=== PATIENT | female | born 1965 | race Caucasian/White ===

== ENCOUNTER 2016-07-28 21:38 | Emergency (ER) | payer OTHER ==
[~2016-07-28] VITALS: Ht 175.3 cm; Wt 85.5 kg
[~2016-07-28 21:38] MED LIST: AMO500 PO; AMOX500T; HYDR-3011 PO; IBUP-1542 PO; ULT50 PO
[2016-07-28 21:40] VITALS: Ht 175.3 cm; Wt 85.5 kg
[2016-07-28] MEDS ORDERED: KETOROLAC 30 MG INJ IM STA (23:19)
[2016-07-28] MEDS ORDERED: DIAZEPAM 5 MG/ML SYG IM ONE (23:30)
[2016-07-28] MEDS ORDERED: IBUP-1542 PO (23:43)
[2016-07-28] MEDS ORDERED: CYCL-319 PO (23:43)
--- NOTE | 2016-07-28 23:55 | ERD ---
ER Documentation Chief Complaint Date/Time DATE: 07/28/16 TIME: 23:53 Chief Complaint lower back pain today,hx sciatica HPI This is a 50-year-old female presenting to the emergency room complaining of acute on chronic lower back pain with sciatica for the past day. Patient rates the pain moderate in severity. She denies any saddle anesthesia, bladder or bowel incontinence. Denies any urinary symptoms. Denies any fever. Patient states that she has taken ibuprofen at 11:00 this morning without any relief ROS All systems reviewed and are negative except as per history of present illness. Medications Home Meds Active Scripts Cyclobenzaprine Hcl* (Cyclobenzaprine Hcl*) 10 Mg Tablet, 10 MG PO TID, #15 TAB Prov:BAMBI SCHMIDT PA-C 07/28/16 Ibuprofen* (Ibuprofen*) 600 Mg Tablet, 600 MG PO Q6H Y for PAIN, #30 TAB Prov:BAMBI SCHMIDT PA-C 07/28/16 Amoxicillin* (Amoxicillin*) 500 Mg Cap, 500 MG PO TID for 7 Days, CAP Prov:JAZMÍN ESTRADA PA-C 03/29/16 Tramadol HCl (Tramadol HCl) 50 Mg Tablet, 50 MG PO Q4 Y for PAIN, #10 TAB Prov:JAZMÍN ESTRADA PA-C 03/29/16 Ibuprofen* (Motrin*) 600 Mg Tab, 600 MG PO Q6, #30 TAB take with food Prov:EDGARDO AGUERO PA-C 02/12/16 Hydroxyzine Hcl* (Hydroxyzine Hcl*) 25 Mg Tablet, 25 MG PO Q8H Y for ITCHING, # 30 TAB Prov:SAVAGE ALVAREZ NP 01/10/16 Reported Medications Amoxicillin Trihydrate (Amoxicillin) 500 Mg Tablet, 1 bid 10/04/14 Allergies Allergies: Coded Allergies: No Known Allergy (Unverified , 07/09/16) PMhx/Soc Medical and Surgical Hx: pt denies Surgical Hx History of Surgery: No Anesthesia Reaction: No Hx Neurological Disorder: No Hx Respiratory Disorders: No Hx Cardiac Disorders: Yes (was hosp for high blood pressure) Hx Psychiatric Problems: No Hx Miscellaneous Medical Probl: No Hx Alcohol Use: No Hx Substance Use: No Hx Tobacco Use: Yes Smoking Status: Current some day smoker Physical Exam Vitals Vital Signs Date Time Temp Pulse Resp B/P Pulse Ox O2 Delivery O2 Flow Rate FiO2 07/28/16 21:40 97.1 84 18 116/74 100 Physical Exam GENERAL: WD/WN, in no apparent distress, non-toxic appearing HENT: NC/AT EYES: Conjunctiva normal NECK: Supple PULM: Normal labored breathing CV: Good capillary refill GI: Non-distended, no guarding BACK: no deformities noted, normal spinal curvature, TTP on lumbar region, non- tender on spine midline, + straight leg raise left EXT: No clubbing, cyanosis, or edema NEURO: Moves on all fours, sensation intact, normal gait SKIN: intact PSYCH: Normal mood Results 24 hrs Current Medications Medications (Trade) Dose Ordered Sig/Jose Guadalupe Route PRN Reason Start Time Stop Time Status Last Admin Dose Admin Ketorolac Tromethamine (Toradol) 30 mg ONCE STAT IM 07/28/16 23:19 07/28/16 23:20 DC Diazepam (Valium) 5 mg ONCE ONCE IM 07/28/16 23:30 07/28/16 23:31 DC Procedures/MDM 50-year-old female with a history of lower back pain and sciatica presents to the ER with exacerbation of her lower back pain and sciatica, low suspicion for spinal abscess, vertebral fracture, cauda equina syndrome, spinal stenosis due to physical examination. In the ED patient was given Toradol and Valium for pain relief. Patient is neurovascularly intact. Prescriptions ibuprofen and Flexeril was given to patient, discussed to return to the ED if not improving as expected or follow-up with a primary care physician. Patient understood and agreed with this plan. Departure Diagnosis: Primary Impression: Back pain Back pain location: low back pain Chronicity: chronic Back pain laterality : unspecified Sciatica presence: with sciatica Sciatica laterality: sciatica of left side Qualified Code: M54.42 - Chronic low back pain with left -sided sciatica, unspecified back pain laterality Condition: Stable Patient Instructions: Back Pain (Acute Or Chronic), Back Pain W/ Sciatica Referrals: NO PRIMARY,CARE PHYSICIAN (PCP) [facility] YOU HAVE RECEIVED A MEDICAL SCREENING EXAM AND THE RESULTS INDICATE THAT YOU DO NOT HAVE A CONDITION THAT REQUIRES URGENT TREATMENT IN THE EMERGENCY DEPARTMENT. FURTHER EVALUATION AND TREATMENT OF YOUR CONDITION CAN WAIT UNTIL YOU ARE SEEN IN YOUR DOCTORS OFFICE WITHIN THE NEXT 1-2 DAYS. IT IS YOUR RESPONSIBILITY TO MAKE AN APPOINTMENT FOR FOLOW-UP CARE. IF YOU HAVE A PRIMARY DOCTOR --you should call your primary doctor and schedule an appointment IF YOU DO NOT HAVE A PRIMARY DOCTOR YOU CAN CALL OUR PHYSICIAN REFERRAL HOTLINE AT IF YOU CAN NOT AFFORD TO SEE A PHYSICIAN YOU CAN CHOSE FROM THE FOLLOWING [facility] [id number] [facility] [address] [facility] [address] [facility] [address] [facility]. [facility] [address] [facility] [facility]. [address] Additional Instructions: FOLLOW UP WITH YOUR PRIMARY CARE PHYSICIAN TOMORROW.Return to this facility if you are not improving as expected. Take all medicines as directed. Return to this facility if you are not improving as expected. You have been given a medicine which may cause drowsiness.DO NOT DRIVE OR OPERATE DANGEROUS MACHINERY while taking this medicine! BAMBI SCHMIDT PA-C Jul 28, 2016 23:55
[2016-07-29 01:05] VITALS: BP 122/71; PULSE 68; RESP 16
== END 2016-07-29 01:06 | disposition home or self-care (01) ==
LOC: FTE 21:38
DX: M54.42 Lumbago with sciatica, left side (principal); F17.210 Nicotine dependence, cigarettes, uncomplicated
CPT/HCPCS: 96372; J1885; J3360; Z7502